=== PATIENT | female | born 1930 | race Caucasian/White ===

== ENCOUNTER 2018-10-30 19:51 | Inpatient (IN) ==
[2018-10-30] MEDS ORDERED: Levofloxacin 750 MG/150 ML 750 MG/150 ML BAG IVPB ONE (20:00)
[2018-10-30] MEDS ORDERED: cefTRIAXone 1,000 MG in Water for inj. (sterile) 20 ML 10 ML IVP ONE (20:00)
[2018-10-30 20:40] LABS: Basophils % 0.1 %; Hematocrit 30.4 % (35.3-44.9); Hemoglobin 9.7 g/dL (11.5-15.4); Immature Granulocytes % 0.6 % (0-4); Lymphocytes # 0.5 K/mcL (0.6-4.6); Lymphocytes % 2.3 %; Mean Corpuscular HGB Conc 31.9 g/dL (31.6-35.5); Mean Corpuscular Hemoglobin 32.3 pg (28.0-33.3); Mean Corpuscular Volume 101.3 fL (83.0-100.0); Mean Platelet Volume 11.1 fL (9.4-12.4); Monocytes # 1.2 K/mcL (0.0-1.3); Monocytes % 5.5 %; Neutrophils # 19.5 K/mcL (1.6-8.9); Platelet Count 158 K/mcL (140-400); Red Cell Distribution Width 14.8 % (11.5-14.5); Segmented Neutrophils % 91.5 %
[2018-10-30 20:47] LABS: Bilirubin,Urine Negative (Negative); Blood,Urine Trace-intact (Negative); Clarity,Urine Slightly Cloudy (Clear); Glucose,Urine (UA) Normal (Normal); INR 1.2; Ketones,Urine Trace mg/dL (Negative); Leukocyte Esterase,Urine Negative (Negative); Nitrite,Urine Negative (Negative); Protein,Urine >=300 mg/dL (Neg-Trace); Prothrombin Time 13.8 Seconds (9.4-12.1); Specific Gravity,Urine 1.025 (1.010-1.025); Urobilinogen,Urine Normal (Normal)
[2018-10-30 20:49] LABS: Activated Partial Thrombo Time 34.6 Seconds (26.0-36.0)
[2018-10-30] MEDS: 0.9 % Sodium Chloride 1,000 ML IVC SCH ×3 (20:51→23:13)
[2018-10-30 20:56] LABS: Amorphous Sediment,Urine Few (Few); Color,Urine Yellow (Yellow); RBC,Urine 0-3 per hpf (0-3)
[2018-10-30 20:57] LABS: Hyaline Casts,Urine Few per lpf (None-Few); Troponin I < 0.03 ng/mL (< 0.04)
[2018-10-30 20:58] LABS: Alanine Aminotransferase 10 Units/L (7-52); Albumin 3.1 g/dL (3.5-5.7); Alkaline Phosphatase 60 Units/L (34-104); Aspartate Amino Transferase 14 Units/L (13-39); BUN/Creatinine Ratio 27 (6-26); Bilirubin,Direct 0.4 mg/dL (0.0-0.2); Bilirubin,Indirect 0.4 mg/dL (0.0-1.2); Bilirubin,Total 0.8 mg/dL (0.3-1.0); Blood Urea Nitrogen 29 mg/dL (8-23); Calcium 8.2 mg/dL (8.6-10.3); Carbon Dioxide 23 mEq/L (23-29); Chloride 101 mEq/L (98-107); Globulin 3.2 g/dL (2.4-3.5); Glucose 261 mg/dL (70-105); Magnesium 1.4 mg/dL (1.6-2.6); Osmolality,Calculated 291 (280-300); Phosphorous 3.2 mg/dL (2.7-4.5); Potassium 4.7 mEq/L (3.5-5.1); Sodium 133 mEq/L (136-145); Total Protein 6.3 g/dL (6.4-8.9); eGFR For Non-African Americans 48 (> 60)
--- NOTE | 2018-10-30 20:58 | Emergency Department Note ---
Disposition Clinical Impression: Pneumonia Qualifiers: Pneumonia type: due to unspecified organism Laterality: bilateral Lung location: unspecified part of lung Qualified Code(s): J18.9 - Pneumonia, unspecified organism Sepsis Qualifiers: Sepsis type: sepsis due to unspecified organism Qualified Code(s): A41.9 - Sepsis, unspecified organism Disposition: Admitted As Inpatient Time of Disposition: 21:14 Fever HPI - General Chief Complaint: ED Fever Stated Complaint: Fever Time Seen by Provider: 10/30/18 20:00 Source: EMS, other Mode of arrival: EMS Limitations: altered mental status Nursing Notes Reviewed: Yes Vital Signs Reviewed: Yes - History of Present Illness Pt Subjective Complaint: fever, malaise, other (Some increased weakness. Patient is [facility] resident with history of dementia) Onset (ago): hour(s) Maximum Temperature Reported: 102.5 F Time temperature last taken: 19:00 Temperature Source: oral Associated symptoms: Reports: chills, cough, dyspnea, nausea, altered mental status (More confused than her baseline) Improves with: nothing Treatments prior to arrival fever: acetaminophen - Related Data Home Medications Medication Instructions Recorded Confirmed Dextromethorphan HBr/Quinidine 1 each PO BID 02/05/18 10/30/18 [Nuedexta 20-10 mg Capsule] Divalproex Sodium [Depakote] 125 mg PO BID 02/05/18 10/30/18 Duloxetine HCl [Cymbalta] 60 mg PO 0500 02/05/18 10/30/18 Ferrous Sulfate [Iron] 325 mg PO 0500 02/05/18 10/30/18 Memantine [Namenda] 5 mg PO BID 02/05/18 10/30/18 Polyethylene Glycol 3350 [MiraLAX 17 gm PO DAILY 02/05/18 10/30/18 Powder Bulk 17.9 Oz] Acetaminophen [Tylenol] 1,000 mg PO TID PRN 02/06/18 10/30/18 Gabapentin [Neurontin] 300 mg PO TID 09/28/18 10/30/18 Mirtazapine [Remeron] 15 mg PO HS 09/28/18 10/30/18 glipiZIDE [Glipizide ER] 10 mg PO 0500 09/28/18 10/30/18 Sennosides/Docusate Sodium 3 each PO BID 10/01/18 10/30/18 [Senna-Docusate Sodium Tablet] Atorvastatin [Lipitor] 10 mg PO HS 10/02/18 10/30/18 Metformin HCl 500 mg PO BID 10/02/18 10/30/18 Metoprolol Succinate [Toprol Xl] 100 mg PO BID 10/02/18 10/30/18 Omeprazole [PriLOSEC] 20 mg PO DAILY 10/02/18 10/30/18 dilTIAZem HCl [Diltiazem 24Hr Cd] 120 mg PO 0500 10/02/18 10/30/18 Magnesium Oxide [Magnesium] 500 mg PO DAILY 10/30/18 10/30/18 Tramadol HCl [Ultram] 50 mg PO BID PRN 10/30/18 10/30/18 Previous Rx's Medication Instructions Recorded Aspirin Enteric Coated [Aspirin EC] 81 mg PO DAILY 30 Days #30 10/08/18 tablet. Allergies Allergy/AdvReac Type Severity Reaction Status Date / Time No Known Allergies Allergy Verified 10/02/18 13:00 Limitations: ROS unobtainable due to patients medical condition Fever PMH - Past Medical History Medical history: Reports: atrial fibrillation, cancer, CHF, dementia, diabetes, hyperlipidemia, hypertension Psychiatric history: Reports: anxiety, depression - Social History Smoking Status: Never smoker Alcohol use: Reports: none Drug use: Reports: none Physical Exam Constitutional: Patient is oriented only to person and place.. Skin color is pale. Appears well hydrated, body habitus elderly and frail. Appears ill, but he is warm, patient has tachypnea and dyspneic and tachycardic Head: Normocephalic and atraumatic. External ear exam normal Nose: Nose normal. Mouth/Throat: Uvula is midline, oropharynx is clear and dry Eyes: Conjunctivae nl, extraocular motions and lids are normal. Pupils are equal, round, and reactive to light. Neck: Normal range of motion and phonation normal. Neck supple. No JVD Cardiovascular: Rapid rate, irregular rhythm, normal heart sounds. Pulmonary/Chest: Tachypnea Respiratory distress. Respiratory Effort increased and breath sounds rhonchi at the left lung base and reveals at The right lung Abdominal: Soft. Normal appearance and bowel sounds are normal. tenderness, no masses, no guarding, no rebound Genitals: No external abnormalities of the genitalia or any decubiti Musculoskeletal: Good distal pulses. Soft compartments. Brisk cap refill. Extremities: Normal range of motion.Intact peripheral pulses. No Edema. Extremity skin color nl, no calf tenderness or palpable cords. Neurological: Patient is alert but confused without evidence of obvious motor deficits Skin: Skin is hot dry and intact. color is pale cap refill is quick Psychiatric: Patient is confused. Patient speech is clear and behavior is normal. . - General Limitations: altered mental status General appearance: alert Course - Reevaluation(s) Reevaluation #1: Patient has fever, multifocal pneumonia, elevated white blood cell count, and likely sepsis. Antibiotics and IV fluids were begun immediately. [facility] had actually Lars administered nearly a liter of IV fluids and I ordered 2 more liters to comply with sepsis clinical pathway. Broad-spectrum antibiotics were administered. Patient is in A. fib with rapid rate but the rate is because of her fever and infectious illness and therefore will be treated with the IV fluids rather than any beta blockers or calcium channel blockers to slow her ra te. Patient has DNR DNR [facility] There are no family members available to discuss plan. I believe she is a candidate for hospitalization at this facility Time: 20:56 Reevaluation #2: I discussed the case patient's past medical history and current presentation as well as CODE STATUS with Dr. Brand administrative operations coordinator for hospitalist. He agrees to accept the patient would like me to put in orders as a courtesy. We discussed these in detail including fluid rates, antibiotics, etc. and he agrees to accept the patient for admission. Time: 21:13 Vital Signs Temperature 102.2 F H 10/30/18 19:56 Pulse Rate 121 10/30/18 19:56 Respiratory Rate 14 10/30/18 19:56 Blood Pressure 129/97 10/30/18 19:56 O2 Sat by Pulse Oximetry 94 10/30/18 19:56 Temperature 98.7 F 10/30/18 22:05 Pulse Rate 100 10/30/18 22:05 Respiratory Rate 22 10/30/18 22:05 Blood Pressure 105/57 10/30/18 22:05 O2 Sat by Pulse Oximetry 96 10/30/18 22:05 Oxygen Delivery Oxygen Delivery Nasal Cannula Fever - MDM Narrative Medical decision making narrative: Sepsis. Likely pneumonia - Lab Data Lab results reviewed: Yes I reviewed the patient's lab results. Result diagrams: 10/30/18 20:30 10/30/18 20:30 Lab Results 10/30/18 10/30/18 10/30/18 Range/Units 20:30 20:30 20:30 WBC 21.3 H (4.3-11.1) K/mcL RBC 3.00 L (3.82-4.97) M/mcL Hgb 9.7 L (11.5-15.4) g/dL Hct 30.4 L (35.3-44.9) % MCV 101.3 H (83.0-100.0) fL MCH 32.3 (28.0-33.3) pg MCHC 31.9 (31.6-35.5) g/dL RDW 14.8 H (11.5-14.5) % Plt Count 158 (140-400) K/mcL MPV 11.1 (9.4-12.4) fL Immature Gran % 0.6 (0-4) % Seg Neutrophils % 91.5 % Lymphocytes % 2.3 % Monocytes % 5.5 % Eosinophils % 0.0 % Basophils % 0.1 % Neutrophils # 19.5 H (1.6-8.9) K/mcL Lymphocytes # 0.5 L (0.6-4.6) K/mcL Monocytes # 1.2 (0.0-1.3) K/mcL Eosinophils # 0.0 (0.0-0.6) K/mcL Basophils # 0.0 (0.0-0.2) K/mcL PT 13.8 H (9.4-12.1) Seconds INR 1.2 APTT 34.6 (26.0-36.0) Seconds VBG pH (7.32-7.42) pH Units VBG pCO2 (41-51) mmHg VBG pO2 (25-50) mmHg VBG HCO3 (21-27) mEq/L Sodium (136-145) mEq/L Potassium (3.5-5.1) mEq/L Chloride (98-107) mEq/L Carbon Dioxide (23-29) mEq/L BUN (8-23) mg/dL Creatinine (0.60-1.20) mg/dL Est GFR ( Amer) (> 60) Est GFR (Non-Af Amer) (> 60) BUN/Creatinine Ratio (6-26) Glucose (70-105) mg/dL Calculated Osmolality (280-300) Lactic Acid (0.5-2.2) mmol/L Calcium (8.6-10.3) mg/dL Phosphorus (2.7-4.5) mg/dL Magnesium (1.6-2.6) mg/dL Total Bilirubin (0.3-1.0) mg/dL Direct Bilirubin (0.0-0.2) mg/dL Indirect Bilirubin (0.0-1.2) mg/dL AST (13-39) Units/L ALT (7-52) Units/L Alkaline Phosphatase (34-104) Units/L Troponin I (< 0.04) ng/mL Serum Total Protein (6.4-8.9) g/dL Albumin (3.5-5.7) g/dL Globulin (2.4-3.5) g/dL Albumin/Globulin Ratio (1.1-2.2) Urine Color Yellow (Yellow) Urine Clarity Slightly Cloudy A (Clear) Urine pH 5.0 (5.0-8.0) pH Units Ur Specific [place] 1.025 (1.010-1.025) Urine Protein >=300 H (Neg-Trace) mg/dL Urine Glucose (UA) Normal (Normal) mg/dL Urine Ketones Trace H (Negative) mg/dL Urine Blood Trace-intact H (Negative) Urine Nitrite Negative (Negative) Urine Bilirubin Negative (Negative) Urine Urobilinogen Normal (Normal) mg/dL Ur Leukocyte Esterase Negative (Negative) Urine Microscopic RBC 0-3 (0-3) per hpf Amorphous Sediment Few (Few) Hyaline Casts Few (None-Few) per lpf Ur Culture Indicated? NO (NO) 10/30/18 10/30/18 10/30/18 Range/Units 20:30 20:30 21:23 WBC (4.3-11.1) K/mcL RBC (3.82-4.97) M/mcL Hgb (11.5-15.4) g/dL Hct (35.3-44.9) % MCV (83.0-100.0) fL MCH (28.0-33.3) pg MCHC (31.6-35.5) g/dL RDW (11.5-14.5) % Plt Count (140-400) K/mcL MPV (9.4-12.4) fL Immature Gran % (0-4) % Seg Neutrophils % % Lymphocytes % % Monocytes % % Eosinophils % % Basophils % % Neutrophils # (1.6-8.9) K/mcL Lymphocytes # (0.6-4.6) K/mcL Monocytes # (0.0-1.3) K/mcL Eosinophils # (0.0-0.6) K/mcL Basophils # (0.0-0.2) K/mcL PT (9.4-12.1) Seconds INR APTT (26.0-36.0) Seconds VBG pH 7.42 (7.32-7.42) pH Units VBG pCO2 33 L (41-51) mmHg VBG pO2 73 H (25-50) mmHg VBG HCO3 21 (21-27) mEq/L Sodium 133 L (136-145) mEq/L Potassium 4.7 (3.5-5.1) mEq/L Chloride 101 (98-107) mEq/L Carbon Dioxide 23 (23-29) mEq/L BUN 29 H (8-23) mg/dL Creatinine 1.07 (0.60-1.20) mg/dL Est GFR ( Amer) 59 L (> 60) Est GFR (Non-Af Amer) 48 L (> 60) BUN/Creatinine Ratio 27 H (6-26) Glucose 261 H (70-105) mg/dL Calculated Osmolality 291 (280-300) Lactic Acid 1.8 (0.5-2.2) mmol/L Calcium 8.2 L (8.6-10.3) mg/dL Phosphorus 3.2 (2.7-4.5) mg/dL Magnesium 1.4 L (1.6-2.6) mg/dL Total Bilirubin 0.8 (0.3-1.0) mg/dL Direct Bilirubin 0.4 H (0.0-0.2) mg/dL Indirect Bilirubin 0.4 (0.0-1.2) mg/dL AST 14 (13-39) Units/L ALT 10 (7-52) Units/L Alkaline Phosphatase 60 (34-104) Units/L Troponin I < 0.03 (< 0.04) ng/mL Serum Total Protein 6.3 L (6.4-8.9) g/dL Albumin 3.1 L (3.5-5.7) g/dL Globulin 3.2 (2.4-3.5) g/dL Albumin/Globulin Ratio 1.0 L (1.1-2.2) Urine Color (Yellow) Urine Clarity (Clear) Urine pH (5.0-8.0) pH Units Ur Specific [place] (1.010-1.025) Urine Protein (Neg-Trace) mg/dL Urine Glucose (UA) (Normal) mg/dL Urine Ketones (Negative) mg/dL Urine Blood (Negative) Urine Nitrite (Negative) Urine Bilirubin (Negative) Urine Urobilinogen (Normal) mg/dL Ur Leukocyte Esterase (Negative) Urine Microscopic RBC (0-3) per hpf Amorphous Sediment (Few) Hyaline Casts (None-Few) per lpf Ur Culture Indicated? (NO) - Radiology Data Radiology results reviewed: Yes I reviewed the patient's radiology results. HISTORY: ORDERING SYSTEM PROVIDED HISTORY: fever Acute fever. History of AFib and hypertension. Colon cancer. Patient diabetic with hyperlipidemia. FINDINGS: Heart size is normal. Dense opacity is present in the left retrocardiac area. Moderate opacity is present laterally in the left mid lung. A small amount of opacity is present in the right mid lung. No CHF or pleural effusion. Changes of cuff arthropathy in the right shoulder. XR/XR chest 1V portable IMPRESSION: Multifocal pneumonia most significant in the left retrocardiac area. D/ / Alexy Silva MD / Alexy Silva MD Interpreting Provider: Alexy Silva MD - EKG Data EKG attestation: Yes I reviewed and interpreted this EKG. EKG results narrative: ECG atrial fibrillation rate 149 left bundle-branch block no evidence of acute ST-T wave changes Critical Care Time Attestation: Critical care provided for this patient of which 120 minutes were spent on critical care including at patient bedside, record review, evaluation of results, conversation with consultants and decision making and 0 minutes for procedures There was imminent failure of an organ system which required critical intervention to prevent clinically significant progression of life-threatening deterioration of the patient's condition to the point of disability or
[2018-10-30 21:28] LABS: VBG HCO3 21 mEq/L (21-27); VBG PCO2 33 mmHg (41-51); VBG PH 7.42 pH Units (7.32-7.42); VBG PO2 73 mmHg (25-50)
[2018-10-30] MEDS ORDERED: Metoprolol 100 MG TABLET PO SCH (22:15)
[2018-10-30] MEDS ORDERED: Naloxone 0.4 MG/ML INJ IVP PRN (22:40)
[2018-10-30] MEDS ORDERED: Acetaminophen 325 MG TABLET PO PRN (22:40)
[2018-10-31] MEDS: *HR* GlipiZIDE XL (24 HR) 10 MG TABLET PO SCH (04:27)
[2018-10-31] MEDS: Diltiazem CD (24hr) 120 MG CAPSULE PO SCH (04:27)
[2018-10-31 05:17] LABS: Basophils % 0.1 %; Hematocrit 30.6 % (35.3-44.9); Hemoglobin 9.5 g/dL (11.5-15.4); Immature Granulocytes % 0.5 % (0-4); Lymphocytes # 0.6 K/mcL (0.6-4.6); Lymphocytes % 3.2 %; Mean Corpuscular Hemoglobin 31.8 pg (28.0-33.3); Mean Corpuscular Volume 102.3 fL (83.0-100.0); Monocytes # 1.2 K/mcL (0.0-1.3); Monocytes % 5.9 %; Platelet Count 151 K/mcL (140-400); Red Blood Count 2.99 M/mcL (3.82-4.97); Red Cell Distribution Width 14.6 % (11.5-14.5); Segmented Neutrophils % 90.3 %
[2018-10-31 05:18] LABS: Neutrophils # 17.7 K/mcL (1.6-8.9)
[2018-10-31 05:31] LABS: Calcium 8.1 mg/dL (8.6-10.3); Potassium 4.8 mEq/L (3.5-5.1)
[2018-10-31] MEDS ORDERED: *HR* Enoxaparin 30 MG/0.3 ML SYRINGE SQ SCH (06:00)
--- NOTE | 2018-10-31 08:20 | Internal Med History&Physical ---
Date of Encounter: 10/31/18 Time of Encounter: 08:17 Assessment and Plan (1) Pneumonia Current visit: Yes Status: Acute [facility] of shortness of breath. On arrival patient was noted to have fever of 102.2 and a heart rate greater than 120. Chest x-ray confirmed mu ltifocal pneumonia. Patient was started on Levaquin and gentle hydration through IV fluids. This morning patient continues with tachypnea, but in no apparent distress. WBC count has dropped to 19.6. Remains febrile at 99.7. We will obtain a chest x-ray this morning due to patient's history of CHF and the amount of IV fluid she received during her resuscitation between EMS transport and being admitted here. We will continue on current Levaquin. We will continue to monitor closely Qualifiers: Pneumonia type: due to unspecified organism Laterality: bilateral Lung location: unspecified part of lung Qualified Code(s): J18.9 - Pneumonia, unspecified organism (2) CHF (congestive heart failure) Current visit: Yes Status: Chronic Patient with long history of CHF. This morning she has presented with tachypnea . Vital signs are stable. Patient being treated for pneumonia. Lungs with decreased breath sounds to lower fills and basilar fine rales. We will obtain a chest x-ray, due to patient recently receiving IV fluids during resuscitation through sepsis alert. We will add a BNP to her morning labs. Qualifiers: Heart failure type: unspecified Heart failure chronicity: unspecified Qualified Code(s): I50.9 - Heart failure, unspecified (3) Diabetes mellitus Current visit: No Status: Chronic Patient's initial glucose on admission was greater than 250. We will do before meals and at bedtime fingersticks and cover with low-dose sliding scale. We will obtain a hemoglobin A1c on next blood draw. Qualifiers: Diabetes mellitus type: type 2 Diabetes mellitus watermaster insulin use: without mcc use Diabetes mellitus complication status: with kidney complications Diabetes mellitus complication detail: with chronic kidney disease Chronic kidney disease stage: stage 3 (moderate) Qualified Code(s): E11.22 - Type 2 diabetes mellitus with diabetic chronic kidney disease; N18.3 - Chronic kidney disease, stage 3 (moderate) (4) HTN (hypertension) Current visit: No Status: Chronic Vital signs currently are stable. We will continue with current medications. Qualifiers: Hypertension type: essential hypertension Qualified Code(s): I10 - Essential (primary) hypertension (5) Atrial fibrillation Current visit: No Status: Chronic Patient continues with atrial fibrillation, but her ventricular rate currently is elevated to 122/minute. Patient remains febrile at 99.7 and currently is being treated for pneumonia. We will continue with current plan of care. Will start patient on prophylactic Lovenox. Qualifiers: Atrial fibrillation type: chronic Qualified Code(s): I48.2 - Chronic atrial fibrillation (6) Dementia Current visit: No Status: Chronic No acute issues. Patient is interacting well with staff and is oriented 2, but not to time. Patient has been appropriate and patient was able to add to her history. Qualifiers: Dementia type: unspecified type Dementia behavioral disturbance: without behavioral disturbance Qualified Code(s): F03.90 - Unspecified dementia without behavioral disturbance Internal Medicine - H&P: HPI Chief complaint: Pneumonia Admitted From: Long-term Nursing Facility Plans for Post Hospital Care: Transfer Long Term Facility History of present illness: Ms. Mccord is a 87 year old female, who presented to the emergency department yesterday after being transported from a group home facility. Patient's chief complaint was shortness of breath. Upon arrival patient had a temperature of 102.2 and was found to be in atrial fibrillation with a ventricular rate greater than 120. Chest x-ray showed multifocal pneumonia. Patient's respiratory rate was at 22. Patient was admitted to the medical floor for further treatment and evaluation. Patient was started on Levaquin and was placed on IV fluids for gentle hydration. Patient's blood pressure has remained stable tonight. Patient has a history of dementia but currently is oriented to name and place. Patient also with history of chronic atrial fib, CHF, DM and hypertension. Patient's initial WBC on labs was greater than 21 and her initial glucose was greater than 250. This morning patient noted to have tachypnea Respiratory rate at 2832/min, but no current distress. Patient has diminished breath sounds throughout lower ann with fine rales heard to posterior bases. Patient denies any discomforts, but states that she feels her breathing is not doing well. Denies any productive cough. Her temperature this morning's at 99.7 and on morning labs her WBC has dropped to 19.6. Past Med Surg Social Fam HX - Past Medical History Medical history: atrial fibrillation, cancer, CHF, dementia, diabetes, hyperlipidemia, hypertension Additional medical history: Malignant Neoplasm COLON CANCER Psychiatric history: anxiety, depression - Past Surgical History Surgical History: cancer surgery, hysterectomy Additional surgical history: CBORTHO TKR. COLON RESECTION. R HIP REPAIR. Dilation of Esophgus - Social History Smoking Status: Never smoker Smokeless Tobacco Status: No Alcohol use: none Drug use: none - Family History Mother History Unknown: Yes Living Status: Father History Unknown: Yes Living Status: Internal Medicine - H&P: Meds Dextromethorphan HBr/Quinidine [Nuedexta 20-10 mg Capsule] 1 each PO BID 02/05/18 [History] Divalproex Sodium [Depakote] 125 mg PO BID 02/05/18 [History] Duloxetine HCl [Cymbalta] 60 mg PO 0500 02/05/18 [History] Ferrous Sulfate [Iron] 325 mg PO 0500 02/05/18 [History] Memantine [Namenda] 5 mg PO BID 02/05/18 [History] Polyethylene Glycol 3350 [MiraLAX Powder Bulk 17.9 Oz] 17 gm PO DAILY 02/05/18 [History] Acetaminophen [Tylenol] 1,000 mg PO TID PRN 02/06/18 [History] Gabapentin [Neurontin] 300 mg PO TID 09/28/18 [History] Mirtazapine [Remeron] 15 mg PO HS 09/28/18 [History] glipiZIDE [Glipizide ER] 10 mg PO 0500 09/28/18 [History] Sennosides/Docusate Sodium [Senna-Docusate Sodium Tablet] 3 each PO BID 10/01/18 [History] Atorvastatin [Lipitor] 10 mg PO HS 10/02/18 [History] Metformin HCl 500 mg PO BID 10/02/18 [History] Metoprolol Succinate [Toprol Xl] 100 mg PO BID 10/02/18 [History] Omeprazole [PriLOSEC] 20 mg PO DAILY 10/02/18 [History] dilTIAZem HCl [Diltiazem 24Hr Cd] 120 mg PO 0500 10/02/18 [History] Aspirin Enteric Coated [Aspirin EC] 81 mg PO DAILY 30 Days #30 tablet. 10/08 [Rx] Magnesium Oxide [Magnesium] 500 mg PO DAILY 10/30/18 [History] Tramadol HCl [Ultram] 50 mg PO BID PRN 10/30/18 [History] Allergy/AdvReac Type Severity Reaction Status Date / Time No Known Allergies Allergy Verified 10/02/18 13:00 All Systems PM: A 10-system review of systems was performed and is negative for pertinent findings except as documented above in the HPI. - Constitutional Constitutional: as per HPI, no chills, no fever(s), no night sweats - EENT Eyes: as per HPI, no change in vision, no discharge, no pain, no photophobia Ears: no ear discharge, no ear pain, no tinnitus Nose, mouth and throat: as per HPI, no dysphagia, no nasal discharge, no neck pain, no sore throat - Breasts Breasts: as per HPI - Cardiovascular Cardiovascular ROS IM: as per HPI, no chest pain, no diaphoresis, no dyspnea, no lightheadedness, no palpitations, no syncope - Respiratory Respiratory: as per HPI, no cough, no dyspnea, no wheezing, no excessive phlegm production - Gastrointestinal Gastrointestinal: as per HPI, no abdominal pain, no diarrhea, no hematemesis, no hematochezia, no melena, no nausea, no vomiting - Genitourinary Genitourinary: as per HPI, no change in urinary stream, no dysuria, no flank pain, no hematuria - Musculoskeletal Musculoskeletal ROS IM: as per HPI, no numbness, no tingling - Integumentary Integumentary IM: as per HPI, no rash, no unusual bruising - Neurological Neurological ROS: as per HPI, no confusion, no convulsions, no focal weakness, no numbness, no tingling, no tremor(s) - Psychiatric Psychiatric: as per HPI - Hematologic/Lymphatic Hematologic/Lymphatic: no easy bruising - Constitutional Vitals: Temp Pulse Resp BP Pulse Ox 99.7 F H 122 17 155/89 93 10/31/18 04:23 10/31/18 04:23 10/31/18 04:23 10/31/18 04:23 10/31/18 04:23 General appearance: Present: A&O X 2, pleasant Exam: Patient oriented 2, but not to time. Patient is appropriate with conversation. - Head Head exam: Present: atraumatic, normocephalic - Eye Eye exam: Present: PERRL, conjuntiva pink, sclera anicteric Pupils: Present: PERRL - Neck Neck exam general surgery: Present: supple, trachea midline. Absent: lymphadenopathy - Respiratory Respiratory exam: Present: accessory muscle use, decreased breath sounds, CTAB, rales. Absent: rhonchi, wheezes Additional comments: Patients respiratory rate currently is at 2832/minute and noted to be somewhat short of breath. Lungs are diminished throughout lower ann with fine rales heard posteriorly at bases. No productive cough noted. - Cardiovascular Cardiovascular exam: Present: irregular rhythm, RRR, +S1, +S2. Absent: diastolic murmur, gallop, rubs, systolic murmur Additional comments: Patient continues with atrial fibrillation with a ventricular rate at 120 - GI/Abdominal GI/Abdominal exam: Present: normal bowel sounds, soft, no peritoneal signs. Absent: distended, tenderness - Additional comments: Regan catheter in place with clear yellow urine received - Extremities Exam Extremities exam: Present: warm, radial pulses palpable and symmetrical. Absent: calf tenderness, cyanotic, pedal edema - Neurological Exam Neurological exam: Present: CN II-XII intact, oriented X3, no focal deficits. Absent: pronater drift, facial droop, speech deficit - Skin Skin exam: Present: dry, intact Internal Med - H&P Results - Labs CBC & Chem 7: 10/31/18 05:00 10/31/18 05:00 Labs: Short CBC 10/30/18 10/31/18 Range/Units 20:30 05:00 WBC 21.3 H 19.6 H (4.3-11.1) K/mcL Hgb 9.7 L 9.5 L (11.5-15.4) g/dL Hct 30.4 L 30.6 L (35.3-44.9) % Plt Count 158 151 (140-400) K/mcL Neutrophils # 19.5 H 17.7 H (1.6-8.9) K/mcL BMP 10/30/18 10/31/18 20:30 05:00 Sodium 133 L 134 L Potassium 4.7 4.8 Chloride 101 103 Carbon Dioxide 23 22 L BUN 29 H 28 H Creatinine 1.07 1.06 Glucose 261 H 263 H Calcium 8.2 L 8.1 L Cardiac Enzymes 10/30/18 Range/Units 20:30 Troponin I < 0.03 (< 0.04) ng/mL Liver Function 10/30/18 Range/Units 20:30 Total Bilirubin 0.8 (0.3-1.0) mg/dL Direct Bilirubin 0.4 H (0.0-0.2) mg/dL AST 14 (13-39) Units/L ALT 10 (7-52) Units/L Alkaline Phosphatase 60 (34-104) Units/L Albumin 3.1 L (3.5-5.7) g/dL Urine 10/30/18 Range/Units 20:30 Urine Color Yellow (Yellow) Urine Clarity Slightly Cloudy A (Clear) Urine pH 5.0 (5.0-8.0) pH Units Ur Specific [place] 1.025 (1.010-1.025) Urine Protein >=300 H (Neg-Trace) mg/dL Urine Glucose (UA) Normal (Normal) mg/dL - ABG Interpretation ABG results: 10/30/18 21:23 VBG pH 7.42 VBG pCO2 33 L VBG pO2 73 H VBG HCO3 21 - Impressions ITS Impressions Chest X-Ray 10/30/18 20:02 IMPRESSION: Multifocal pneumonia most significant in the left retrocardiac area. D/ / Alexy Silva MD / Alexy Silva MD Interpreting Provider: Alexy Silva MD
[2018-10-31] MEDS ORDERED: *HR* Dextrose 50 % in Water (Syg) 50 ML SYRINGE IVP PRN (08:39)
[2018-10-31] MEDS ORDERED: D5% in Water 1,000 ML IVC PRN (08:39)
[2018-10-31] MEDS ORDERED: Dextrose Gel 15 GM/37.5 ML TUBE PO PRN ×2 (08:39)
[2018-10-31] MEDS ORDERED: NON-FORMULARY MEDICATION 1 EACH EACH (Metoprolol Succinate [Toprol Xl] 100 MG) PO SCH (09:00)
[2018-10-31] MEDS: Levofloxacin 500 MG/100 ML 500 MG/100 ML BAG IVPB SCH (09:11)
[2018-10-31] MEDS: Sennosides/Docusate Sodium TABLET PO SCH ×2 (09:12→20:10)
[2018-10-31] MEDS: Gabapentin 300 MG CAPSULE PO SCH ×3 (09:12→20:10)
[2018-10-31] MEDS: Divalproex Sodium 125 MG CAPSULE PO SCH ×2 (09:12→20:11)
[2018-10-31] MEDS: Magnesium Oxide 400 MG TABLET PO SCH (09:12)
[2018-10-31] MEDS: Metoprolol 100 MG TABLET PO SCH ×2 (09:12→20:11)
[2018-10-31] MEDS: *HR* Metformin 500 MG TABLET PO SCH ×2 (09:12→20:32)
[2018-10-31] MEDS: Aspirin Enteric Coated 81 MG Tablet PO SCH (09:12)
[2018-10-31] MEDS ORDERED: 0.9 % Sodium Chloride 1,000 ML IVC SCH (09:15)
[2018-10-31] MEDS ORDERED: Ondansetron ODT 4 MG TAB.RAPDIS SL PRN (10:21)
[2018-10-31] MEDS: Mag Hydrox/Al Hydrox/Simeth 30 ML UDC PO PRN (11:14)
[2018-10-31] MEDS: Insulin LISPRO 300 UNITS/3 ML VIAL SQ SCH ×3 (16:22→20:33)
[2018-10-31] MEDS: Mirtazapine 15 MG TABLET PO SCH (20:11)
[2018-11-01] MEDS: *HR* Enoxaparin 40 MG/0.4 ML SYRINGE SQ SCH (05:34)
[2018-11-01] MEDS: Diltiazem CD (24hr) 120 MG CAPSULE PO SCH (05:34)
[2018-11-01] MEDS: *HR* GlipiZIDE XL (24 HR) 10 MG TABLET PO SCH (06:41)
[2018-11-01] MEDS: Insulin LISPRO 300 UNITS/3 ML VIAL SQ SCH ×5 (07:40→20:53)
[2018-11-01] MEDS: 0.9 % Sodium Chloride 1,000 ML IVC SCH (07:45)
[2018-11-01] MEDS: Metoprolol 100 MG TABLET PO SCH ×2 (08:41→20:50)
[2018-11-01] MEDS: Divalproex Sodium 125 MG CAPSULE PO SCH ×2 (08:41→20:49)
[2018-11-01] MEDS: Gabapentin 300 MG CAPSULE PO SCH ×3 (08:41→20:51)
[2018-11-01] MEDS: Magnesium Oxide 400 MG TABLET PO SCH (08:41)
[2018-11-01] MEDS: Aspirin Enteric Coated 81 MG Tablet PO SCH (08:41)
[2018-11-01] MEDS: *HR* Metformin 500 MG TABLET PO SCH ×2 (08:41→20:50)
[2018-11-01] MEDS: Sennosides/Docusate Sodium TABLET PO SCH ×2 (08:41→20:48)
[2018-11-01] MEDS ORDERED: Furosemide 20 MG/2 ML VIAL IVP ONE (08:59)
--- NOTE | 2018-11-01 09:40 | Electrocardiograph Report ---
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
[2018-11-01] MEDS: Levofloxacin 500 MG/100 ML 500 MG/100 ML BAG IVPB SCH (10:18)
--- NOTE | 2018-11-01 10:22 | Internal Med Progress Note ---
Date of Encounter: 11/01/18 Time of Encounter: 10:20 - Assessment and plan (1) Pneumonia Current Visit: Yes Status: Acute Assessment and plan: No acute changes. Patient remains afebrile. Patient continues with slight dyspnea. No productive cough. No hypoxia. We will continue on Levaquin. Patient stated dyspnea likely secondary to her CHF Qualifiers: Pneumonia type: due to unspecified organism Laterality: bilateral Lung location: unspecified part of lung Qualified Code(s): J18.9 - Pneumonia, unspecified organism (2) CHF (congestive heart failure) Current Visit: Yes Status: Chronic Assessment and plan: Patient currently with slight dyspnea and remains tachypneic at 28/m. Continued diminished breath sounds to lower fills with scattered fine rales. Chest x-ray yesterday showed possible slight pulmonary edema. Vital signs stable. We will give Lasix 20 mg now and reevaluate later this afternoon Qualifiers: Heart failure type: unspecified Heart failure chronicity: unspecified Qualified Code(s): I50.9 - Heart failure, unspecified (3) Diabetes mellitus Current Visit: No Status: Chronic Assessment and plan: Patient continues with elevated glucose with multiple readings greater than 200. Patient started on sliding scale insulin. We will continue to monitor. Qualifiers: Diabetes mellitus type: type 2 Diabetes mellitus watcher automat long goods insulin use: without longterm use Diabetes mellitus complication status: with kidney complications Diabetes mellitus complication detail: with chronic kidney disease Chronic kidney disease stage: stage 3 (moderate) Qualified Code(s): E11.22 - Type 2 diabetes mellitus with diabetic chronic kidney disease; N18.3 - Chronic kidney disease, stage 3 (moderate) (4) HTN (hypertension) Current Visit: No Status: Chronic Assessment and plan: Vital signs are stable. We will continue with current medications. Qualifiers: Hypertension type: essential hypertension Qualified Code(s): I10 - Essential (primary) hypertension (5) Atrial fibrillation Current Visit: No Status: Chronic Assessment and plan: Patient continues with atrial fibrillation with her heart rate currently tachyc ardic at 120. Patient remains on Cardizem and metoprolol. Patient currently shown signs of slight pulmonary edema and will reevaluate patient's cardiac status after gentle diuresis Qualifiers: Atrial fibrillation type: chronic Qualified Code(s): I48.2 - Chronic atrial fibrillation (6) Dementia Current Visit: No Status: Chronic Assessment and plan: No acute issues. Patient relates no behavior issues overnight. Patient has been very appropriate and cooperative with staff Qualifiers: Dementia type: unspecified type Dementia behavioral disturbance: without behavioral disturbance Qualified Code(s): F03.90 - Unspecified dementia without behavioral disturbance - Time Spent With Patient less than 15 minutes - Subjective Interval history: Patient states she continues to be somewhat short of breath. Patient denies any chest discomforts or productive cough. Patient states concerns about her breathing, but also has been inquiring about being discharged home. Patient appears in no distress - Constitutional Vitals: Temp Pulse Resp BP Pulse Ox 98.6 F 86 26 154/106 95 11/01/18 07:53 11/01/18 07:53 11/01/18 07:53 11/01/18 07:53 11/01/18 09:02 General appearance: Present: A&O X 2, pleasant Exam: Patient oriented 2 but not to time. Conversation is appropriate. - Head Head exam: Present: atraumatic, normocephalic - Eye Eye exam: Present: PERRL, conjuntiva pink, sclera anicteric Pupils: Present: PERRL - Neck Neck exam general surgery: Present: supple, trachea midline. Absent: lymphadenopathy - Respiratory Respiratory exam: Present: accessory muscle use, decreased breath sounds, CTAB, rales. Absent: rhonchi, wheezes Additional comments: Patient continues with Respiratory rate at 28/m and shows increased abdominal breathing. Lungs with diminished breath sounds throughout lower fills and noted fine scattered rales bibasilar. No productive cough. - Cardiovascular Cardiovascular exam: Present: irregular rhythm, RRR, +S1, +S2. Absent: diastolic murmur, gallop, rubs, systolic murmur Additional comments: Patient's heart rate of remains irregular and tachycardic at 120 bpm. - GI/Abdominal GI/Abdominal exam: Present: normal bowel sounds, soft, no peritoneal signs. Absent: distended, tenderness - Extremities Exam Extremities exam: Present: warm, radial pulses palpable and symmetrical. Absent: calf tenderness, cyanotic, pedal edema - Neurological Exam Neurological exam: Present: CN II-XII intact, oriented X3, no focal deficits. Absent: pronater drift, facial droop, speech deficit - Skin Skin exam: Present: dry, intact Internal Medicine: Result - Labs CBC & Chem 7: 10/31/18 05:00 10/31/18 05:00 - ABG Interpretation ABG results: PT/INR, D-dimer PT 13.8 Seconds (9.4-12.1) H 10/30/18 20:30 Consult Discharge Plan - Plan Referrals: Payal Davis MD [Primary Care Provider] -
[2018-11-01] MEDS: Mirtazapine 15 MG TABLET PO SCH (20:51)
[2018-11-01] MEDS: Mag Hydrox/Al Hydrox/Simeth 30 ML UDC PO PRN (20:52)
[2018-11-02] MEDS: *HR* Enoxaparin 40 MG/0.4 ML SYRINGE SQ SCH (04:48)
[2018-11-02 05:58] LABS: Hematocrit 25.1 % (35.3-44.9); Mean Corpuscular HGB Conc 31.9 g/dL (31.6-35.5); Mean Corpuscular Hemoglobin 32.1 pg (28.0-33.3); Mean Corpuscular Volume 100.8 fL (83.0-100.0); Mean Platelet Volume 10.4 fL (9.4-12.4); Platelet Count 169 K/mcL (140-400); Red Blood Count 2.49 M/mcL (3.82-4.97); Red Cell Distribution Width 14.6 % (11.5-14.5)
[2018-11-02 06:10] LABS: Alanine Aminotransferase 10 Units/L (7-52); Albumin 2.7 g/dL (3.5-5.7); Albumin/Globulin Ratio 0.9 (1.1-2.2); Alkaline Phosphatase 52 Units/L (34-104); Aspartate Amino Transferase 14 Units/L (13-39); BUN/Creatinine Ratio 35 (6-26); Bilirubin,Total 0.5 mg/dL (0.3-1.0); Blood Urea Nitrogen 30 mg/dL (8-23); Calcium 8.3 mg/dL (8.6-10.3); Carbon Dioxide 26 mEq/L (23-29); Chloride 105 mEq/L (98-107); Glucose 61 mg/dL (70-105); Magnesium 1.8 mg/dL (1.6-2.6); Osmolality,Calculated 290 (280-300); Sodium 138 mEq/L (136-145); Total Protein 5.7 g/dL (6.4-8.9); eGFR For Non-African Americans > 60 (> 60)
[2018-11-02 06:31] LABS: Thyroid Stimulating Hormone 2.348 mcIU/mL (0.340-5.600)
[2018-11-02] MEDS: Insulin LISPRO 300 UNITS/3 ML VIAL SQ SCH ×4 (08:29→20:19)
[2018-11-02] MEDS: Divalproex Sodium 125 MG CAPSULE PO SCH ×2 (08:51→20:19)
[2018-11-02] MEDS: levoFLOXacin 750 MG TABLET PO SCH (08:51)
[2018-11-02] MEDS: Aspirin Enteric Coated 81 MG Tablet PO SCH (08:51)
[2018-11-02] MEDS: *HR* GlipiZIDE XL (24 HR) 10 MG TABLET PO SCH (08:51)
[2018-11-02] MEDS: Sennosides/Docusate Sodium TABLET PO SCH ×2 (08:51→20:21)
[2018-11-02] MEDS: Metoprolol 100 MG TABLET PO SCH ×2 (08:51→20:19)
[2018-11-02] MEDS: *HR* Metformin 500 MG TABLET PO SCH ×2 (08:51→20:19)
[2018-11-02] MEDS: Magnesium Oxide 400 MG TABLET PO SCH (08:51)
[2018-11-02] MEDS: Gabapentin 300 MG CAPSULE PO SCH ×3 (08:51→20:18)
[2018-11-02] MEDS: Diltiazem CD (24hr) 120 MG CAPSULE PO SCH (08:51)
--- NOTE | 2018-11-02 11:26 | Internal Med Progress Note ---
Date of Encounter: 11/02/18 Time of Encounter: 11:24 - Assessment and plan (1) Type 2 diabetes mellitus Current Visit: Yes Status: Chronic Assessment and plan: Glipizide held this morning for glucose level in the 60s. Patient did eat breakfast and blood sugar has gone up to normal. Qualifiers: Diabetes mellitus group home insulin use: without group home use Diabetes mellitus complication status: with circulatory complication Diabetes mellitus complication detail: with other circulatory complications Qualified Code(s): E11.59 - Type 2 diabetes mellitus with other circulatory complications (2) Atrial fibrillation Current Visit: Yes Status: Chronic Assessment and plan: Rate and rhythm stable. Continue Cardizem, metoprolol and Lovenox. Qualifiers: Atrial fibrillation type: chronic Qualified Code(s): I48.2 - Chronic atrial fibrillation (3) Dementia Current Visit: Yes Status: Chronic Assessment and plan: Continue supportive care. Assist with ADLs as necessary. Qualifiers: Dementia type: unspecified type Dementia behavioral disturbance: without behavioral disturbance Qualified Code(s): F03.90 - Unspecified dementia without behavioral disturbance (4) Pneumonia Current Visit: Yes Status: Acute Assessment and plan: Improving. White blood cell count improved today at 14.7. Continue PO Levaquin. Afebrile. Qualifiers: Pneumonia type: due to unspecified organism Laterality: bilateral Lung location: unspecified part of lung Qualified Code(s): J18.9 - Pneumonia, u nspecified organism (5) CHF (congestive heart failure) Current Visit: Yes Status: Chronic Assessment and plan: Stable. Monitor labs. Monitor for decompensation. Continue current medication. Qualifiers: Heart failure type: unspecified Heart failure chronicity: unspecified Qualified Code(s): I50.9 - Heart failure, unspecified - Time Spent With Patient less than 15 minutes - Subjective Interval history: Patient states she is doing better today. Difficult to obtain full HPI due to dementia. Asking to go back, today. Denies shortness of breath or chest pain. Denies fever, chills, nausea vomiting or diarrhea. Ate breakfast well this morning. On PO Levaquin for pneumonia. Has chronic Regan emplaced. Lives at [facility]. - Constitutional Vitals: Temp Pulse Resp BP Pulse Ox 98.6 F 83 20 148/96 95 11/02/18 08:09 11/02/18 08:09 11/02/18 08:09 11/02/18 08:09 11/02/18 08:09 General appearance: Present: A&O X 2, pleasant, no acute distress, answers questions appropriately - Head Head exam: Present: atraumatic, normocephalic - Eye Eye exam: Present: PERRL, conjuntiva pink, sclera anicteric Pupils: Present: PERRL - Neck Neck exam general surgery: Present: supple, trachea midline. Absent: lymp hadenopathy - Respiratory Respiratory exam: Absent: accessory muscle use, rales, rhonchi, wheezes Additional comments: Scattered wheezes with bibasilar crackles bilateral - Cardiovascular Cardiovascular exam: Present: irregular rhythm, +S1, +S2. Absent: diastolic murmur, gallop, rubs, systolic murmur - GI/Abdominal GI/Abdominal exam: Present: normal bowel sounds, soft, no peritoneal signs. Absent: distended, tenderness - Extremities Exam Extremities exam: Present: warm, radial pulses palpable and symmetrical. Absent: calf tenderness, cyanotic, pedal edema - Neurological Exam Neurological exam: Present: CN II-XII intact, oriented X3, no focal deficits. Absent: pronater drift, facial droop, speech deficit - Skin Skin exam: Present: dry, intact Internal Medicine: Result - Labs CBC & Chem 7: 11/02/18 05:40 11/02/18 05:40 Labs: Short CBC 11/02/18 Range/Units 05:40 WBC 14.1 H (4.3-11.1) K/mcL Hgb 8.0 L D (11.5-15.4) g/dL Hct 25.1 L (35.3-44.9) % Plt Count 169 (140-400) K/mcL BMP 11/02/18 05:40 Sodium 138 Potassium 4.0 Chloride 105 Carbon Dioxide 26 BUN 30 H Creatinine 0.86 Glucose 61 L Calcium 8.3 L Liver Function 11/02/18 Range/Units 05:40 Total Bilirubin 0.5 (0.3-1.0) mg/dL AST 14 (13-39) Units/L ALT 10 (7-52) Units/L Alkaline Phosphatase 52 (34-104) Units/L Albumin 2.7 L (3.5-5.7) g/dL - ABG Interpretation ABG results: PT/INR, D-dimer PT 13.8 Seconds (9.4-12.1) H 10/30/18 20:30 Consult Discharge Plan - Plan Referrals: Payal Davis MD [Primary Care Provider] -
[2018-11-02] MEDS ORDERED: LEVOFLOXACIN 750 MG/150 ML IVPB SCH (12:00)
[2018-11-02] MEDS: Ipratropium/Albuterol Neb 3 ML IH SCH ×3 (13:45→22:09)
[2018-11-02] MEDS: Mirtazapine 15 MG TABLET PO SCH (20:18)
[2018-11-03] MEDS: Ipratropium/Albuterol Neb 3 ML IH SCH ×4 (05:29→22:10)
[2018-11-03 05:39] LABS: Hemoglobin 9.3 g/dL (11.5-15.4); Mean Corpuscular Hemoglobin 31.3 pg (28.0-33.3); Mean Platelet Volume 10.6 fL (9.4-12.4); Platelet Count 172 K/mcL (140-400); Red Blood Count 2.97 M/mcL (3.82-4.97); Red Cell Distribution Width 14.6 % (11.5-14.5)
[2018-11-03] MEDS: *HR* Enoxaparin 40 MG/0.4 ML SYRINGE SQ SCH (05:39)
[2018-11-03 05:52] LABS: BUN/Creatinine Ratio 28 (6-26); Blood Urea Nitrogen 23 mg/dL (8-23); Calcium 8.5 mg/dL (8.6-10.3); Carbon Dioxide 32 mEq/L (23-29); Chloride 101 mEq/L (98-107); Glucose 124 mg/dL (70-105); Osmolality,Calculated 289 (280-300); Potassium 4.1 mEq/L (3.5-5.1); Sodium 137 mEq/L (136-145); eGFR For Non-African Americans > 60 (> 60)
[2018-11-03] MEDS: Insulin LISPRO 300 UNITS/3 ML VIAL SQ SCH ×4 (07:35→20:54)
[2018-11-03] MEDS: Aspirin Enteric Coated 81 MG Tablet PO SCH (07:45)
[2018-11-03] MEDS: Magnesium Oxide 400 MG TABLET PO SCH (07:45)
[2018-11-03] MEDS: Metoprolol 100 MG TABLET PO SCH ×2 (07:45→20:50)
[2018-11-03] MEDS: levoFLOXacin 750 MG TABLET PO SCH (07:45)
[2018-11-03] MEDS: *HR* Metformin 500 MG TABLET PO SCH ×2 (07:45→20:53)
[2018-11-03] MEDS: Diltiazem CD (24hr) 120 MG CAPSULE PO SCH (07:46)
[2018-11-03] MEDS: Gabapentin 300 MG CAPSULE PO SCH ×3 (07:46→20:53)
[2018-11-03] MEDS: Sennosides/Docusate Sodium TABLET PO SCH ×2 (07:46→20:53)
[2018-11-03] MEDS: *HR* GlipiZIDE XL (24 HR) 10 MG TABLET PO SCH (07:46)
[2018-11-03] MEDS: Divalproex Sodium 125 MG CAPSULE PO SCH ×2 (07:46→20:51)
[2018-11-03 13:19] LABS: % Iron Saturation 17 % (15-50); Iron 38 mcg/dL (50-170); Transferrin 160 mg/dL (203-362)
[2018-11-03 13:23] LABS: Prealbumin 10.4 mg/dL (17.0-34.0)
[2018-11-03 13:56] LABS: Vitamin B12 > 1500 pg/mL (250-1100)
--- NOTE | 2018-11-03 14:08 | Internal Med Progress Note ---
Date of Encounter: 11/03/18 Time of Encounter: 02:04 - Subjective Interval history: Internal Med: Progress Note - Assessment and plan (1) Type 2 diabetes mellitus Current Visit: Yes Status: Chronic Assessment and plan: Pt was not eating well and glipizide was being held. Yesterday pt started on megace. Today pt eating better ate all of breakfast she is edentulous but she feeds herself. Had BM yesterday Qualifiers: Diabetes mellitus terminal make up operator insulin use: without chcf use Diabetes mellitus complication status: with circulatory complication Diabetes mellitus complication detail: with other circulatory complications Qualified Code(s): E11.59 - Type 2 diabetes mellitus with other circulatory complications (2) Atrial fibrillation Current Visit: Yes Status: Chronic Assessment and plan: Rate and rhythm stable. Continue Cardizem, metoprolol and Lovenox. Qualifiers: Atrial fibrillation type: chronic Qualified Code(s): I48.2 - Chronic atrial fibrillation (3) Dementia Current Visit: Yes Status: Chronic Assessment and plan: Continue supportive care. Assist with ADLs as necessary. Pt has poor short term memory but she is Qualifiers: Dementia type: unspecified type Dementia behavioral disturbance: without behavioral disturbance Qualified Code(s): F03.90 - Unspecified dementia without behavioral disturbance (4) Pneumonia Current Visit: Yes Status: Acute Assessment and plan: Improving. White blood cell count improving continue Levaquin. Afebrile. Qualifiers: Pneumonia type: due to unspecified organism Laterality: bilateral Lung location: unspecified part of lung Qualified Code(s): J18.9 - Pneumonia, unspecified organism (5) CHF (congestive heart failure) Current Visit: Yes Status: Chronic Assessment and plan: Stable. Monitor labs. Monitor for decompensation. Continue current medication. Qualifiers: Heart failure type: unspecified Heart failure chronicity: unspecified Antonio lified Code(s): I50.9 - Heart failure, unspecified (6) COPD exacerbation She has secondary smoke hx her father and smoked around her she has clinical exam cw copd and good response to duonebs will continue duoneb wean off NC oxygen as tolerated - Time Spent With Patient less than 15 minutes - Subjective Interval history: Patient breathing better today says duonebs help her breath better and deeper. She has less work of breathing today she is still on Levaquin for pneumonia. Had her Regan removed and has chron incont. Lives at [facility]. Spoke with her dtr pt may be well enough for return sun or mon if continues to improve. EXAM General appearance: Present: A&O X 2, pleasant, no acute distress, answers questions appropriately - Head Head exam: Present: atraumatic, normocephalic edentulous - Eye Eye exam: Present: PERRL, conjuntiva pink, sclera anicteric Pupils: Present: PERRL - Neck Neck exam general surgery: Present: supple, trachea midline. Absent: lymphadenopathy - Respiratory Respiratory exam: Additional comments: Scattered wheezes with bibasilar crackles bilateral but improved today dry velcro crackles - Cardiovascular Cardiovascular exam: Present: irregular rhythm, +S1, +S2. Absent: diastolic murmur, gallop, rubs, systolic murmur - GI/Abdominal GI/Abdominal exam: Present: normal bowel sounds, soft, no peritoneal signs. Absent: distended, tenderness - Extremities Exam Extremities exam: Present: warm, radial pulses palpable and symmetrical. Absent: calf tenderness, cyanotic, pedal edema - Neurological Exam Neurological exam: Present: CN II-XII intact, oriented X3, no focal deficits. Absent: pronater drift, facial droop, speech deficit - Skin Skin exam: Present: dry, intact small excoriation to left groin some minor debri ( wears depends ) Internal Medicine: Result 11/02/18 05:40 Labs: Short CBC 11/02/18 Range/Units 05:40 WBC 14.1 H (4.3-11.1) K/mcL Hgb 8.0 L D (11.5-15.4) g/dL Hct 25.1 L (35.3-44.9) % Plt Count 169 (140-400) K/mcL BMP 11/02/18 05:40 Sodium 138 Potassium 4.0 Chloride 105 Carbon Dioxide 26 BUN 30 H Creatinine 0.86 Glucose 61 L Calcium 8.3 L Liver Function 11/02/18 Range/Units 05:40 Total Bilirubin 0.5 (0.3-1.0) mg/dL AST 14 (13-39) Units/L ALT 10 (7-52) Units/L Alkaline Phosphatase 52 (34-104) Units/L Albumin 2.7 L (3.5-5.7) g/dL - Constitutional Vitals: Temp Pulse Resp BP Pulse Ox 98.1 F 78 19 142/83 97 11/03/18 07:00 11/03/18 07:00 11/03/18 10:30 11/03/18 07:00 11/03/18 10:30 General appearance: Present: A&O X 2, pleasant, no acute distress, answers questions appropriately Internal Medicine: Result - Labs CBC & Chem 7: 11/03/18 05:28 11/03/18 05:28 Labs: Short CBC 11/03/18 Range/Units 05:28 WBC 11.6 H (4.3-11.1) K/mcL Hgb 9.3 L (11.5-15.4) g/dL Hct 30.0 L (35.3-44.9) % Plt Count 172 (140-400) K/mcL BMP 11/03/18 05:28 Sodium 137 Potassium 4.1 Chloride 101 Carbon Dioxide 32 H BUN 23 Creatinine 0.82 Glucose 124 H Calcium 8.5 L - ABG Interpretation ABG results: PT/INR, D-dimer PT 13.8 Seconds (9.4-12.1) H 10/30/18 20:30 Consult Discharge Plan - Plan Referrals: Payal Davis MD [Primary Care Provider] -
[2018-11-03] MEDS: Nystatin Cream 15 GM TUBE TP SCH ×2 (14:51→20:56)
[2018-11-03] MEDS: Mirtazapine 15 MG TABLET PO SCH (20:51)
[2018-11-04] MEDS: Ipratropium/Albuterol Neb 3 ML IH SCH ×2 (04:39→10:08)
[2018-11-04] MEDS: *HR* Enoxaparin 40 MG/0.4 ML SYRINGE SQ SCH (05:06)
[2018-11-04 08:17] VITALS: BP 137/72
[2018-11-04] MEDS: Sennosides/Docusate Sodium TABLET PO SCH (09:06)
[2018-11-04] MEDS: Aspirin Enteric Coated 81 MG Tablet PO SCH (09:07)
[2018-11-04] MEDS: Diltiazem CD (24hr) 120 MG CAPSULE PO SCH (09:07)
[2018-11-04] MEDS: *HR* GlipiZIDE XL (24 HR) 10 MG TABLET PO SCH (09:07)
[2018-11-04] MEDS: levoFLOXacin 750 MG TABLET PO SCH (09:07)
[2018-11-04] MEDS: *HR* Metformin 500 MG TABLET PO SCH (09:07)
[2018-11-04] MEDS: Gabapentin 300 MG CAPSULE PO SCH (09:07)
[2018-11-04] MEDS: Magnesium Oxide 400 MG TABLET PO SCH (09:07)
[2018-11-04] MEDS: Divalproex Sodium 125 MG CAPSULE PO SCH (09:07)
[2018-11-04] MEDS: Metoprolol 100 MG TABLET PO SCH (09:07)
[2018-11-04] MEDS: Nystatin Cream 15 GM TUBE TP SCH (09:08)
[2018-11-04] MEDS: Insulin LISPRO 300 UNITS/3 ML VIAL SQ SCH ×2 (09:41→13:43)
[2018-11-04] MEDS: Mag Hydrox/Al Hydrox/Simeth 30 ML UDC PO PRN (11:28)
[2018-11-04] MEDS ORDERED: Sucralfate 1 GM TABLET PO SCH (12:33)
--- NOTE | 2018-11-04 12:39 | Discharge Summary ---
- NOTES TO OUTPATIENT PROVIDER Notes to Outpatient Provider: Patient had great benefit from duoneb therapy. Will continue for now. Would maintain on nebulizer or inhaler chronic for her copd Orders not resulted at time of discharge: Pending orders 10/30/18 20:30 Culture,Blood [] Stat Date of Encounter: 11/04/18 Time of Encounter: 12:40 - Discharge Diagnosis (1) COPD (chronic obstructive pulmonary disease) Priority: Primary Status: Acute Comments: PT responded well to duoneb treatments (2) Dementia Priority: Secondary Status: Chronic Comments: currently stable on nemanda Qualifiers: Dementia type: Alzheimer's disease Alzheimer's disease onset: unspecified onset Dementia behavioral disturbance: without behavioral disturbance Qualified Code(s): G30.9 - Alzheimer's disease, unspecified; F02.80 - Dementia in other diseases classified elsewhere without behavioral disturbance (3) Type 2 diabetes mellitus Priority: Secondary Status: Chronic Comments: pt has not been eating well started on Megace for now Gipizide dose lowered to 5 mg from 10 Qualifiers: Diabetes mellitus longterm insulin use: without terminal worker use Diabetes mellitus complication status: with circulatory complication Diabetes mellitus complication detail: with other circulatory complications Qualified Code(s): E11.59 - Type 2 diabetes mellitus with other circulatory complications (4) Atrial fibrillation Priority: Secondary Status: Chronic Comments: stable on diliazem and beta jah Qualifiers: Atrial fibrillation type: chronic Qualified Code(s): I48.2 - Chronic atrial fibrillation (5) Pneumonia Priority: Primary Status: Acute Qualifiers: Pneumonia type: due to unspecified organism Laterality: bilateral Lung location: unspecified part of lung Qualified Code(s): J18.9 - Pneumonia, unspecified organism (6) CHF (congestive heart failure) Priority: Primary Status: Chronic Qualifiers: Heart failure type: unspecified Heart failure chronicity: unspecified Qualified Code(s): I50.9 - Heart failure, unspecified Hospital course: Ms. Mccord is a 87 year old female who was admit october 30 from [facility] She had increased sob and elevated respiratory rate she was noted to have high heart rate and low bp and hypoxia she was given IV fluid in ED she was noted to have fluid overload and have exacerbation of chf as well as pneumonia she was treated with diuretics and antibiotics and NC oxygen. - She improved somewhat but continued to need NC oxygen which was new for her - and remained with symptom of wheeze and tachypnea. Noted to have shallow breathing she was treated for copd with duoneb and responded very well. after this she was able to get off of oxygen and sats stable. She had improvement in her vital signs. She was noted to have low appetite and stated never hungry Was started on megace po and had some improve in appetite. Also given ensure as not well nourished. She improved in strength . Her mental status remained same. oriented x 1 to 2. poor short term memory most of the time. Dementia continued to be treated with po namenda. Discharge discussed with: patient, family Time spent discussing smoking cessation with patient: 3 to 10 minutes - Time Spent with Patient Total time spent providing and/or coordinating discharge services: Time spent: Greater than 30 minutes - Discharge Medications Prescriptions: No Action Memantine [Namenda] 5 mg PO BID Acetaminophen [Tylenol] 1,000 mg PO TID PRN PRN Reason: Mild To Moderate Pain Mirtazapine [Remeron] 15 mg PO HS glipiZIDE [Glipizide ER] 10 mg PO 0500 Gabapentin [Neurontin] 300 mg PO TID Atorvastatin [Lipitor] 10 mg PO HS dilTIAZem HCl [Diltiazem 24Hr Cd] 120 mg PO 0500 Metformin HCl 500 mg PO BID Metoprolol Succinate [Toprol Xl] 100 mg PO BID Omeprazole [PriLOSEC] 20 mg PO DAILY Aspirin Enteric Coated [Aspirin EC] 81 mg PO DAILY 30 Days #30 tablet. Polyethylene Glycol 3350 [MiraLAX Powder Bulk 17.9 Oz] 17 gm PO DAILY Dextromethorphan HBr/Quinidine [Nuedexta 20-10 mg Capsule] 1 each PO BID Ferrous Sulfate [Iron] 325 mg PO 0500 Duloxetine HCl [Cymbalta] 60 mg PO 0500 Divalproex Sodium [Depakote] 125 mg PO BID Sennosides/Docusate Sodium [Senna-Docusate Sodium Tablet] 3 each PO BID Magnesium Oxide [Magnesium] 500 mg PO DAILY Tramadol HCl [Ultram] 50 mg PO BID PRN PRN Reason: Pain Home Medications: Dextromethorphan HBr/Quinidine [Nuedexta 20-10 mg Capsule] 1 each PO BID 02/05/18 [History] Divalproex Sodium [Depakote] 125 mg PO BID 02/05/18 [History] Duloxetine HCl [Cymbalta] 60 mg PO 0500 02/05/18 [History] Ferrous Sulfate [Iron] 325 mg PO 0500 02/05/18 [History] Memantine [Namenda] 5 mg PO BID 02/05/18 [History] Polyethylene Glycol 3350 [MiraLAX Powder Bulk 17.9 Oz] 17 gm PO DAILY 02/05/18 [History] Acetaminophen [Tylenol] 1,000 mg PO TID PRN 02/06/18 [History] Gabapentin [Neurontin] 300 mg PO TID 09/28/18 [History] Mirtazapine [Remeron] 15 mg PO HS 09/28/18 [History] glipiZIDE [Glipizide ER] 10 mg PO 0500 09/28/18 [History] Sennosides/Docusate Sodium [Senna-Docusate Sodium Tablet] 3 each PO BID 10/01/18 [History] Atorvastatin [Lipitor] 10 mg PO HS 10/02/18 [History] Metformin HCl 500 mg PO BID 10/02/18 [History] Metoprolol Succinate [Toprol Xl] 100 mg PO BID 10/02/18 [History] Omeprazole [PriLOSEC] 20 mg PO DAILY 10/02/18 [History] dilTIAZem HCl [Diltiazem 24Hr Cd] 120 mg PO 0500 10/02/18 [History] Aspirin Enteric Coated [Aspirin EC] 81 mg PO DAILY 30 Days #30 tablet. 10/08/18 [Rx] Magnesium Oxide [Magnesium] 500 mg PO DAILY 10/30/18 [History] Tramadol HCl [Ultram] 50 mg PO BID PRN 10/30/18 [History] Allergies/Adverse Reactions: Allergy/AdvReac Type Severity Reaction Status Date / Time haldol Allergy Hallucinati Uncoded 10/31/18 11:20 ng Date of admission: 10/30/18 22:30 Primary care physician: Payal Davis Discharging clinician: Radhika Renee Anticipated date of discharge: 11/04/18 - Constitutional Vitals: Temp Pulse Resp BP Pulse Ox 98.0 F 66 19 137/72 99 11/04/18 08:16 11/04/18 08:16 05/12/19 10:15 11/04/18 08:16 11/04/18 10:15 General appearance: Present: A&O X 2, pleasant, no acute distress, answers questions appropriately - Patient Status Disposition: Transfer SNF Condition: Fair Functional capacity at discharge: uses cane/walker Overall status at discharge: patient is progressing back to baseline - Discharge Instructions Follow Up With: Payal Davis MD [Primary Care Provider] -
[2018-11-05] MEDS ORDERED: *HR* GlipiZIDE XL (24 HR) 2.5 MG TABLET PO SCH (09:00)
== END 2018-11-04 14:30 | DRG 291 ==
LOC: EMEROOGRE 19:51 → INPGRE 22:30